=== PATIENT | female | born 1990 | race African-American/Black ===

== ENCOUNTER 2022-10-14 15:21 | Emergency (ER) | payer SELFPAY ==
[~2022-10-14] VITALS: Ht 165.1 cm; Wt 70.0 kg
[2022-10-14 15:36] VITALS: BP 104/74; TEMP 98.3
[2022-10-14 16:34] LABS: COLLECTION METHOD CLEAN CATCH
[2022-10-14 16:41] LABS: BASO % 0.6 % (0.0-2.0); EOS # 0.2 K/mm3 (0.0-0.7); GRAN # 3.6 K/mm3 (1.4-6.5); GRAN % 54.1 % (42.2-75.2); HEMATOCRIT 33.8 % (37.0-47.0); LYMPH # 2.2 K/mm3 (1.2-3.4); LYMPH % 32.8 % (20.0-51.0); MEAN CELL VOLUME 89 fl (80.0-100.0); MEAN CORPUSCULAR HEMOGLOBIN 29 pg (27-31); MEAN CORPUSCULAR HGB CONC 33 g/dl (33.0-37.0); MEAN PLATELET VOLUME 9.7 fl (7.4-10.4); MONO # 0.6 K/mm3 (0.1-0.6); MONO % 9.4 % (1.7-9.3); PLATELET COUNT 319 K/mm3 (130-400); RED BLOOD COUNT 3.82 M/mm3 (4.10-5.30); REDCELL DISTRIBUTION WIDTH-CV 13.1 % (11.5-14.5)
[2022-10-14 16:42] LABS: PH 5.5 (5.0-8.5); SQUAMOUS EPITHELIAL None Seen /hpf (0-10); URINE APPEARANCE Cloudy (CLEAR/HAZY); URINE BACTERIA None Seen /hpf (NONE SEEN); URINE COLOR Red (YELLOW); URINE RBC >50 /hpf (0-2)
[2022-10-14 16:43] LABS: URINE BLOOD 3+ (NEGATIVE); URINE GLUCOSE Negative (NEGATIVE); URINE KETONE Negative (NEGATIVE); URINE NITRATE Negative (NEGATIVE); URINE PROTEIN(semi-quant) 1+ (NEGATIVE); URINE UROBILINOGEN 0.2 E.U/dL (0.2-1.0)
[2022-10-14 16:56] LABS: ALBUMIN 3.9 gm/dL (3.5-5.0); BILIRUBIN,TOTAL 0.3 mg/dL (0.2-1.2); CALCIUM 9.5 mg/dL (8.4-10.2); CREATININE, serum 0.8 mg/dL (0.57-1.11); POTASSIUM 3.8 mmol/L (3.5-4.5); TOTAL PROTEIN 7.3 gm/dL (6.2-8.1)
[2022-10-14] MEDS ORDERED: MACROBID 1100 MG/CAP PO ×2 (17:22→17:50)
[2022-10-14 17:52] VITALS: PULSE 67
== END 2022-10-14 17:52 | disposition home or self-care (01) ==
LOC: COL.ER 15:21 → EDBD 15:23 → COL.ER 15:23
PROVIDERS: Nurse Practitioner
DX: O20.9 Hemorrhage in early pregnancy, unspecified (principal); O23.41 Unspecified infection of urinary tract in pregnancy, first trimester; N39.0 Urinary tract infection, site not specified; Z3A.01 Less than 8 weeks gestation of pregnancy